=== PATIENT | male | born 1945 | race Caucasian/White ===

== ENCOUNTER 2018-05-22 16:42 | Inpatient (IN) ==
[~2018-05-22 16:42] MED LIST: LIDOCAINE 1% 20 ML VIAL ONE
[2018-05-22] MEDS ORDERED: MIDAZOLAM 2 MG/2 ML VIAL ONE (16:49)
[2018-05-22] MEDS ORDERED: HYDROmorphone 2 MG/1 ML VIAL ONE (16:49)
[2018-05-22] MEDS ORDERED: LIDOCAINE 1% 20 ML VIAL ONE (16:49)
[2018-05-22] MEDS ORDERED: HEPARIN 5,000 UNIT/1 ML VIAL ONE (17:07)
[2018-05-22 17:40] LABS: Basophils % 0.3 % (0.0-0.8); Eosinophils # 0.1 10*3/uL (0.0-0.87); Eosinophils % 0.7 % (0.00-10.9); Hematocrit 28.8 VOL% (42.0-52.0); Hemoglobin 8.9 GM/DL (14.0-18.0); Immature Granulocytes % 0.6 %; Immature Granulocytes Absolute 0.07 #; Lymphocytes # 0.9 10*3/uL (1.4-4.0); Mean Corpuscular HGB Conc 30.9 GM/DL (32-36); Mean Corpuscular Hemoglobin 30 PG (27-34); Mean Corpuscular Volume 95.4 FL (87-102); Mean Platelet Volume 9.8 FL (9.6-12.0); Monocytes # 1.1 10*3/uL (0.11-0.8); Monocytes % 9.2 % (1.7-12.7); Neutrophils # 9.3 10*3/uL (1.4-7.4); Neutrophils % 81.2 % (38.7-73.9); Platelet Count 166 T/CUMM (130-400); Red Blood Count 3.02 MC/CUMM (3.8-5.5); Red Cell Distribution Width 14.8 % (9.3-17.3); White Blood Count 11.5 T/CUMM (4-12)
[2018-05-22] MEDS ORDERED: NITROGLYCERIN SL 0.4 MG TABLET SL PRN (17:43)
[2018-05-22] MEDS ORDERED: ONDANSETRON 4 MG/2 ML VIAL IV PRN (17:43)
[2018-05-22 17:52] LABS: INR 1.2; PT Patient Result 13.4 SECS
[2018-05-22 17:57] LABS: Alanine Aminotransferase 12 U/L (16-61); Albumin 2.6 G/DL (3.4-5.0); Alkaline Phosphatase 111 U/L (45-117); Aspartate Amino Transferase 14 U/L (0-37); Bilirubin,Total < 0.39 MG/DL (0.2-1.0); Blood Urea Nitrogen 13 MG/DL (7-18); Calcium 7.4 MG/DL (8.5-10.1); Cholesterol 85 MG/DL (50-200); Glucose 202 MG/DL (74-106); HDL Cholesterol 32 MG/DL (40-60); Osmolality,Calculated 273.2 MOS/KG (273-304); Potassium 3.2 MMOL/L (3.5-5.1); Risk Ratio 2.66; Sodium 134 MMOL/L (136-145); Total Protein 5.8 G/DL (6.4-8.3); Triglycerides 136 MG/DL (2-150); VLDL CHOLESTEROL 27.2 MG/DL
[2018-05-22 18:04] LABS: Troponin I 0.087 NG/ML (0.00-0.045)
[2018-05-22 18:06] LABS: Partial Thromboplastin Time 147.3 SECS (0-40)
[2018-05-22] MEDS ORDERED: POTASSIUM CHLORIDE RIDER 10 MEQ in PREMIX 1 EACH IV PRN (18:13)
[2018-05-22] MEDS ORDERED: SODIUM CHLORIDE 0.9% 1,000 ML IV SCH (18:30)
[2018-05-22 19:41] LABS: ABG Base Excess -3.5 MMOL/L (-2.5-2.5); ABG HCO3 21.5 MMOL/L (20-26); ABG Oxygen Saturation 97.7 % (95-100); ABG PH 7.339 (7.35-7.45); ABG TCO2 20.2 MMOL/L (23-27)
[2018-05-22] MEDS ORDERED: cefTRIAXone 1,000 MG in SYRINGE 1 EACH IV SCH (20:00)
[2018-05-22] MEDS: HYDROmorphone 2 MG/1 ML VIAL IV PRN (20:35)
[2018-05-22] MEDS: ROSUVASTATIN 20 MG TABLET PO SCH (21:20)
[2018-05-22] MEDS: INSULIN REGULAR 100 UNIT/ML SUBCUT SCH (21:20)
[2018-05-22] MEDS: MEROPENEM 1,000 MG in SODIUM CHLORIDE 0.9% 100 ML IV SCH (21:40)
[2018-05-22] MEDS: LEVOFLOXACIN INJ 750 MG in PREMIX 1 EACH IV SCH (22:00)
[2018-05-23] MEDS: VANCOMYCIN INJ 1,000 MG in SODIUM CHLORIDE 0.9% 250 ML IV SCH ×2 (00:40→12:02)
[2018-05-23] MEDS ORDERED: LORazepam 1 MG TABLET PO ONE (00:45)
[2018-05-23] MEDS: ACETAMINOPHEN 500 MG TABLET PO PRN ×2 (01:11→17:31)
[2018-05-23 04:46] LABS: Basophils % 0.1 % (0.0-0.8); Eosinophils % 0.1 % (0.00-10.9); Hematocrit 31.7 VOL% (42.0-52.0); Hemoglobin 9.6 GM/DL (14.0-18.0); Immature Granulocytes % 0.6 %; Immature Granulocytes Absolute 0.07 #; Lymphocytes # 0.7 10*3/uL (1.4-4.0); Lymphocytes % 6.1 % (21.2-54.2); Mean Corpuscular HGB Conc 30.3 GM/DL (32-36); Mean Corpuscular Hemoglobin 29 PG (27-34); Mean Corpuscular Volume 96.4 FL (87-102); Mean Platelet Volume 10.3 FL (9.6-12.0); Monocytes # 0.3 10*3/uL (0.11-0.8); Monocytes % 2.2 % (1.7-12.7); Neutrophils % 90.9 % (38.7-73.9); Platelet Count 171 T/CUMM (130-400); Red Blood Count 3.29 MC/CUMM (3.8-5.5); Red Cell Distribution Width 15.1 % (9.3-17.3); White Blood Count 12.1 T/CUMM (4-12)
[2018-05-23 05:16] LABS: Band Neutrophils 2 % (0-10); Lymphocytes 11 % (20-55); Platelet Estimate Normal; Segmented Neutrophils 83 % (50-85); Total Cells Counted 100
[2018-05-23 05:18] LABS: Albumin 2.8 G/DL (3.4-5.0); Bilirubin,Total 0.5 MG/DL (0.2-1.0); Calcium 8.1 MG/DL (8.5-10.1); Potassium 3.6 MMOL/L (3.5-5.1); Total Protein 6.5 G/DL (6.4-8.3)
[2018-05-23] MEDS: MEROPENEM 1,000 MG in SODIUM CHLORIDE 0.9% 100 ML IV SCH ×3 (05:45→23:18)
[2018-05-23] MEDS ORDERED: SODIUM CHLORIDE 0.9% 500 ML IV ONE (05:57)
[2018-05-23] MEDS ORDERED: NOREPINEPHRINE 4 MG/4 ML VIAL IV ONE (06:06)
[2018-05-23] MEDS: NOREPINEPHRINE 8 MG in SODIUM CHLORIDE 0.9% 242 ML IV PRN ×2 (06:12→16:29)
[2018-05-23] MEDS: ASPIRIN EC 81 MG TABLET PO SCH (09:06)
[2018-05-23] MEDS: INSULIN REGULAR 100 UNIT/ML SUBCUT SCH ×4 (09:06→21:35)
[2018-05-23] MEDS: SODIUM CHLORIDE 0.45% 1,000 ML IV SCH ×2 (09:43→23:20)
[2018-05-23] MEDS ORDERED: MAGNESIUM SULF RIDER 4 GM in PREMIX 1 EACH IV PRN (10:37)
[2018-05-23] MEDS: MAGNESIUM SULF RIDER 2 GM in PREMIX 1 EACH IV PRN ×2 (12:02→13:51)
[2018-05-23] MEDS: HYDROmorphone 2 MG/1 ML VIAL IV PRN (12:03)
[2018-05-23] MEDS ORDERED: LINEZOLID INJ 600 MG in PREMIX 1 EACH IV SCH (17:00)
[2018-05-23] MEDS: methylPREDNISolone SOD SUC 40 MG/1 ML VIAL IV SCH (17:25)
[2018-05-23] MEDS: LINEZOLID INJ 600 MG in PREMIX 1 EACH IV SCH (17:29)
[2018-05-23] MEDS: ALBUTEROL/IPRATROPIUM 3 ML NEB RESP TX SCH (19:46)
[2018-05-23] MEDS: ROSUVASTATIN 20 MG TABLET PO SCH (21:35)
[2018-05-23] MEDS: LEVOFLOXACIN INJ 750 MG in PREMIX 1 EACH IV SCH (21:36)
[2018-05-24] MEDS: ALBUTEROL/IPRATROPIUM 3 ML NEB RESP TX SCH ×4 (00:12→19:20)
[2018-05-24] MEDS: methylPREDNISolone SOD SUC 40 MG/1 ML VIAL IV SCH ×3 (02:25→18:53)
[2018-05-24 04:11] LABS: Basophils % 0.2 % (0.0-0.8); Hematocrit 30.8 VOL% (42.0-52.0); Hemoglobin 9.5 GM/DL (14.0-18.0); Immature Granulocytes % 1.3 %; Immature Granulocytes Absolute 0.21 #; Lymphocytes # 0.5 10*3/uL (1.4-4.0); Lymphocytes % 2.9 % (21.2-54.2); Mean Corpuscular HGB Conc 30.8 GM/DL (32-36); Mean Corpuscular Hemoglobin 29 PG (27-34); Mean Corpuscular Volume 94.5 FL (87-102); Mean Platelet Volume 9.8 FL (9.6-12.0); Monocytes # 0.6 10*3/uL (0.11-0.8); Monocytes % 3.6 % (1.7-12.7); Neutrophils # 14.7 10*3/uL (1.4-7.4); Platelet Count 165 T/CUMM (130-400); Red Blood Count 3.26 MC/CUMM (3.8-5.5); Red Cell Distribution Width 14.8 % (9.3-17.3)
[2018-05-24 04:35] LABS: Calcium 8.1 MG/DL (8.5-10.1); Osmolality,Calculated 285.1 MOS/KG (273-304); Potassium 4.1 MMOL/L (3.5-5.1)
[2018-05-24 04:45] LABS: Band Neutrophils 3 % (0-10); Lymphocytes 3 % (20-55); Platelet Estimate Normal; Segmented Neutrophils 91 % (50-85); Total Cells Counted 100
[2018-05-24 04:46] LABS: Anisocytosis Slight; Microcytosis Slight
[2018-05-24] MEDS: LINEZOLID INJ 600 MG in PREMIX 1 EACH IV SCH ×2 (06:04→18:53)
[2018-05-24] MEDS: MEROPENEM 1,000 MG in SODIUM CHLORIDE 0.9% 100 ML IV SCH ×3 (06:04→21:59)
[2018-05-24] MEDS: NOREPINEPHRINE 8 MG in SODIUM CHLORIDE 0.9% 242 ML IV PRN (06:07)
[2018-05-24] MEDS ORDERED: GLUCAGON 1 MG VIAL IM PRN (07:16)
[2018-05-24] MEDS ORDERED: DEXTROSE 50% 25 GM/50 ML SYRINGE IV PRN (07:16)
[2018-05-24] MEDS ORDERED: VANCOMYCIN INJ 1,000 MG in SODIUM CHLORIDE 0.9% 250 ML IV SCH (08:00)
[2018-05-24] MEDS: SODIUM CHLORIDE 0.45% 1,000 ML IV SCH ×3 (09:05→21:57)
[2018-05-24] MEDS: INSULIN REGULAR 100 UNIT/ML SUBCUT SCH ×4 (09:06→21:59)
[2018-05-24] MEDS: HYDROmorphone 2 MG/1 ML VIAL IV PRN ×2 (09:38→16:46)
[2018-05-24] MEDS: ASPIRIN EC 81 MG TABLET PO SCH (12:07)
[2018-05-24 17:25] LABS: Apearance,Urine CLEAR (Clear); Bacteria,Urine Occasional /HPF (Few); Bilirubin,Urine Negative (Negative); Blood, Urine Moderate mg/dL (Negative); Glucose,Urine (UA) >=500 mg/dL (Negative); Ketones,Urine Negative (Negative); Mucus,Urine Occasional /LPF (Occasional); Nitrite,Urine Negative (Negative); Protein,Urine 100 MG/DL; RBC,Urine 19 /HPF (0-4); Sperm,Urine Occasional /HPF (Negative); Squamous Epithelial Cell,Urine Occasional /HPF (0-10); Urine Color Yellow (Yellow); Urine Specific Gravity 1.014 (1.001-1.035); Urine Urobilinogen < 2.0 EU/DL (0.2-1.0); WBC,Urine 4 /HPF (0-6)
[2018-05-24] MEDS: MORPHINE 4 MG/1 ML VIAL IV PRN (21:30)
[2018-05-24] MEDS: ROSUVASTATIN 20 MG TABLET PO SCH (21:59)
[2018-05-24] MEDS: LEVOFLOXACIN INJ 750 MG in PREMIX 1 EACH IV SCH (22:00)
[2018-05-25] MEDS: ALBUTEROL/IPRATROPIUM 3 ML NEB RESP TX SCH ×4 (00:10→20:11)
[2018-05-25] MEDS: SODIUM CHLORIDE 0.45% 1,000 ML IV SCH ×2 (01:13→09:06)
[2018-05-25] MEDS: methylPREDNISolone SOD SUC 40 MG/1 ML VIAL IV SCH ×3 (02:39→18:29)
[2018-05-25] MEDS: MORPHINE 4 MG/1 ML VIAL IV PRN ×2 (02:42→14:52)
[2018-05-25 04:04] LABS: Basophils % 0.1 % (0.0-0.8); Hematocrit 30.2 VOL% (42.0-52.0); Hemoglobin 9.3 GM/DL (14.0-18.0); Immature Granulocytes % 0.7 %; Immature Granulocytes Absolute 0.06 #; Lymphocytes # 0.6 10*3/uL (1.4-4.0); Lymphocytes % 6.9 % (21.2-54.2); Mean Corpuscular HGB Conc 30.8 GM/DL (32-36); Mean Corpuscular Hemoglobin 29 PG (27-34); Mean Corpuscular Volume 94.7 FL (87-102); Mean Platelet Volume 10.4 FL (9.6-12.0); Monocytes # 0.3 10*3/uL (0.11-0.8); Monocytes % 3.2 % (1.7-12.7); Neutrophils # 7.6 10*3/uL (1.4-7.4); Neutrophils % 89.1 % (38.7-73.9); Platelet Count 183 T/CUMM (130-400); Red Blood Count 3.19 MC/CUMM (3.8-5.5); Red Cell Distribution Width 14.7 % (9.3-17.3); White Blood Count 8.5 T/CUMM (4-12)
[2018-05-25 04:32] LABS: Calcium 8.4 MG/DL (8.5-10.1); Potassium 4.1 MMOL/L (3.5-5.1)
[2018-05-25] MEDS: HYDROmorphone 2 MG/1 ML VIAL IV PRN ×4 (05:19→23:07)
[2018-05-25] MEDS: MEROPENEM 1,000 MG in SODIUM CHLORIDE 0.9% 100 ML IV SCH ×3 (05:47→20:28)
[2018-05-25] MEDS: LINEZOLID INJ 600 MG in PREMIX 1 EACH IV SCH ×2 (05:47→18:29)
[2018-05-25] MEDS: INSULIN REGULAR 100 UNIT/ML SUBCUT SCH ×4 (07:53→20:28)
[2018-05-25] MEDS: ASPIRIN EC 81 MG TABLET PO SCH (08:15)
[2018-05-25] MEDS: SODIUM CHLORIDE 0.9% 1,000 ML IV SCH ×2 (10:32→23:19)
[2018-05-25] MEDS: INSULIN GLARGINE 100 UNIT/ML SUBCUT SCH (14:02)
[2018-05-25] MEDS ORDERED: PROTEASE PO SCH (18:10)
[2018-05-25] MEDS ORDERED: LIPASE PO SCH (18:10)
[2018-05-25] MEDS ORDERED: AMYLASE PO SCH (18:10)
[2018-05-25] MEDS: metFORMIN 500 MG TABLET PO SCH (18:30)
[2018-05-25] MEDS: ROSUVASTATIN 20 MG TABLET PO SCH (20:28)
[2018-05-25] MEDS: LEVOFLOXACIN INJ 750 MG in PREMIX 1 EACH IV SCH (21:03)
[2018-05-26] MEDS: ALBUTEROL/IPRATROPIUM 3 ML NEB RESP TX SCH ×4 (00:55→19:13)
[2018-05-26] MEDS: SODIUM CHLORIDE 0.9% 1,000 ML IV SCH ×2 (04:14→22:00)
[2018-05-26] MEDS: MEROPENEM 1,000 MG in SODIUM CHLORIDE 0.9% 100 ML IV SCH ×3 (04:14→21:11)
[2018-05-26] MEDS: HYDROmorphone 2 MG/1 ML VIAL IV PRN ×2 (04:15→20:22)
[2018-05-26 04:26] LABS: Basophils % 0.1 % (0.0-0.8); Hematocrit 29.5 VOL% (42.0-52.0); Immature Granulocytes % 0.7 %; Immature Granulocytes Absolute 0.05 #; Lymphocytes # 0.8 10*3/uL (1.4-4.0); Lymphocytes % 10.8 % (21.2-54.2); Mean Corpuscular HGB Conc 30.5 GM/DL (32-36); Mean Corpuscular Hemoglobin 29 PG (27-34); Mean Corpuscular Volume 96.1 FL (87-102); Mean Platelet Volume 10.2 FL (9.6-12.0); Monocytes # 0.4 10*3/uL (0.11-0.8); Monocytes % 5.1 % (1.7-12.7); Neutrophils # 6.1 10*3/uL (1.4-7.4); Neutrophils % 83.3 % (38.7-73.9); Platelet Count 181 T/CUMM (130-400); Red Blood Count 3.07 MC/CUMM (3.8-5.5); Red Cell Distribution Width 14.8 % (9.3-17.3); White Blood Count 7.3 T/CUMM (4-12)
[2018-05-26 04:30] LABS: Calcium 8.4 MG/DL (8.5-10.1); Osmolality,Calculated 286.7 MOS/KG (273-304); Potassium 3.9 MMOL/L (3.5-5.1)
[2018-05-26] MEDS: LINEZOLID INJ 600 MG in PREMIX 1 EACH IV SCH ×2 (05:52→18:42)
[2018-05-26] MEDS: metFORMIN 500 MG TABLET PO SCH ×2 (10:32→19:17)
[2018-05-26] MEDS: INSULIN GLARGINE 100 UNIT/ML SUBCUT SCH (10:33)
[2018-05-26] MEDS: ASPIRIN EC 81 MG TABLET PO SCH (10:33)
[2018-05-26] MEDS: INSULIN REGULAR 100 UNIT/ML SUBCUT SCH ×4 (10:33→22:41)
[2018-05-26] MEDS: methylPREDNISolone SOD SUC 40 MG/1 ML VIAL IV SCH ×2 (10:34→21:12)
[2018-05-26] MEDS: MORPHINE 4 MG/1 ML VIAL IV PRN (18:50)
[2018-05-26] MEDS: ROSUVASTATIN 20 MG TABLET PO SCH (21:12)
[2018-05-26] MEDS: LEVOFLOXACIN INJ 750 MG in PREMIX 1 EACH IV SCH (21:12)
[2018-05-27] MEDS: ALBUTEROL/IPRATROPIUM 3 ML NEB RESP TX SCH ×4 (00:18→19:15)
[2018-05-27] MEDS: SODIUM CHLORIDE 0.9% 1,000 ML IV SCH ×3 (00:48→17:18)
[2018-05-27] MEDS: MEROPENEM 1,000 MG in SODIUM CHLORIDE 0.9% 100 ML IV SCH ×3 (05:16→20:11)
[2018-05-27] MEDS: LINEZOLID INJ 600 MG in PREMIX 1 EACH IV SCH ×2 (05:51→17:16)
[2018-05-27 09:05] LABS: Calcium 8.6 MG/DL (8.5-10.1); Osmolality,Calculated 286.4 MOS/KG (273-304); Potassium 4.5 MMOL/L (3.5-5.1)
[2018-05-27 09:11] LABS: Basophils % 0.2 % (0.0-0.8); Eosinophils % 0.5 % (0.00-10.9); Hematocrit 35.1 VOL% (42.0-52.0); Immature Granulocytes % 1.3 %; Immature Granulocytes Absolute 0.08 #; Lymphocytes # 1.4 10*3/uL (1.4-4.0); Lymphocytes % 22.9 % (21.2-54.2); Mean Corpuscular HGB Conc 29.3 GM/DL (32-36); Mean Corpuscular Hemoglobin 29 PG (27-34); Mean Corpuscular Volume 99.2 FL (87-102); Mean Platelet Volume 9.6 FL (9.6-12.0); Monocytes # 0.5 10*3/uL (0.11-0.8); Monocytes % 7.9 % (1.7-12.7); Neutrophils # 4.2 10*3/uL (1.4-7.4); Neutrophils % 67.2 % (38.7-73.9); Platelet Count 182 T/CUMM (130-400); Red Blood Count 3.54 MC/CUMM (3.8-5.5); Red Cell Distribution Width 14.6 % (9.3-17.3); White Blood Count 6.3 T/CUMM (4-12)
[2018-05-27 09:12] LABS: Hemoglobin 10.3 GM/DL (14.0-18.0)
[2018-05-27] MEDS: ASPIRIN EC 81 MG TABLET PO SCH (10:05)
[2018-05-27] MEDS: metFORMIN 500 MG TABLET PO SCH ×2 (10:05→17:03)
[2018-05-27] MEDS: methylPREDNISolone SOD SUC 40 MG/1 ML VIAL IV SCH ×2 (10:05→20:13)
[2018-05-27] MEDS: INSULIN REGULAR 100 UNIT/ML SUBCUT SCH ×4 (10:06→23:05)
[2018-05-27] MEDS: INSULIN GLARGINE 100 UNIT/ML SUBCUT SCH (10:07)
[2018-05-27] MEDS ORDERED: GLUCAGON 1 MG VIAL IM PRN (10:08)
[2018-05-27] MEDS ORDERED: DEXTROSE 50% 25 GM/50 ML VIAL IV PRN (10:08)
[2018-05-27] MEDS: CARVEDILOL 3.125 MG TABLET PO SCH ×2 (10:12→20:11)
[2018-05-27] MEDS: CHLORHEXIDINE 4% SOLN 118 ML BOTTLE TOP SCH ×2 (15:51→21:00)
[2018-05-27] MEDS: HYDROmorphone 2 MG/1 ML VIAL IV PRN ×2 (15:56→20:11)
[2018-05-27] MEDS: ROSUVASTATIN 20 MG TABLET PO SCH (20:11)
[2018-05-27] MEDS: MONTELUKAST 10 MG TABLET PO SCH (20:11)
[2018-05-27] MEDS: CHLORHEXIDINE 0.12% ORAL RINSE 60 ML BOTTLE SWISH/SPIT SCH (20:13)
[2018-05-27] MEDS: LEVOFLOXACIN INJ 750 MG in PREMIX 1 EACH IV SCH (23:15)
[2018-05-28] MEDS: ALBUTEROL/IPRATROPIUM 3 ML NEB RESP TX SCH ×4 (00:10→20:41)
[2018-05-28] MEDS: MORPHINE 4 MG/1 ML VIAL IV PRN (01:40)
[2018-05-28 03:37] LABS: Basophils % 0.2 % (0.0-0.8); Hematocrit 31.9 VOL% (42.0-52.0); Hemoglobin 9.8 GM/DL (14.0-18.0); Immature Granulocytes % 1.5 %; Immature Granulocytes Absolute 0.09 #; Lymphocytes % 15.8 % (21.2-54.2); Mean Corpuscular HGB Conc 30.7 GM/DL (32-36); Mean Corpuscular Hemoglobin 29 PG (27-34); Mean Corpuscular Volume 95.2 FL (87-102); Mean Platelet Volume 9.9 FL (9.6-12.0); Monocytes # 0.4 10*3/uL (0.11-0.8); Monocytes % 6.3 % (1.7-12.7); Neutrophils # 4.6 10*3/uL (1.4-7.4); Neutrophils % 76.2 % (38.7-73.9); Platelet Count 169 T/CUMM (130-400); Red Blood Count 3.35 MC/CUMM (3.8-5.5); Red Cell Distribution Width 14.5 % (9.3-17.3); White Blood Count 6.1 T/CUMM (4-12)
[2018-05-28 03:57] LABS: Calcium 8.1 MG/DL (8.5-10.1); Osmolality,Calculated 285.4 MOS/KG (273-304); Potassium 3.9 MMOL/L (3.5-5.1)
[2018-05-28] MEDS: MEROPENEM 1,000 MG in SODIUM CHLORIDE 0.9% 100 ML IV SCH ×2 (05:53→15:50)
[2018-05-28] MEDS: LINEZOLID INJ 600 MG in PREMIX 1 EACH IV SCH (06:41)
[2018-05-28] MEDS ORDERED: INSULIN GLARGINE 100 UNIT/ML SUBCUT SCH (09:00)
[2018-05-28] MEDS: HYDROmorphone 2 MG/1 ML VIAL IV PRN ×2 (10:02→15:49)
[2018-05-28] MEDS: methylPREDNISolone SOD SUC 40 MG/1 ML VIAL IV SCH (10:06)
[2018-05-28] MEDS: INSULIN REGULAR 100 UNIT/ML SUBCUT SCH ×2 (11:17→15:38)
[2018-05-28] MEDS: CHLORHEXIDINE 0.12% ORAL RINSE 60 ML BOTTLE SWISH/SPIT SCH (11:17)
[2018-05-28] MEDS: CHLORHEXIDINE 4% SOLN 118 ML BOTTLE TOP SCH (11:17)
[2018-05-28] MEDS ORDERED: VANCOMYCIN 1,000 MG VIAL ONE (12:53)
[2018-05-28] MEDS ORDERED: PHENYLEPHRINE DRIP 20 MG/250 ML PREMIX IV ONE (13:11)
[2018-05-28] MEDS ORDERED: HEPARIN/NACL 0.9% 2 UNITS/ML 500 ML IV ONE (13:50)
[2018-05-28] MEDS ORDERED: PROPOFOL 200 MG/20 ML VIAL IV ONE (14:36)
[2018-05-28] MEDS ORDERED: SEVOFLURANE 1 UNIT/15 MINUTE INH ONE ×2 (14:36→21:00)
[2018-05-28] MEDS ORDERED: ETOMIDATE 40 MG/20 ML VIAL IV ONE (14:37)
[2018-05-28] MEDS ORDERED: VECURONIUM 10 MG VIAL IV ONE ×4 (14:37→21:01)
[2018-05-28] MEDS ORDERED: fentaNYL 100 MCG/2 ML VIAL ONE (14:37)
[2018-05-28] MEDS ORDERED: ROCURONIUM 100 MG/10 ML VIAL IV ONE (14:37)
[2018-05-28] MEDS ORDERED: MIDAZOLAM 2 MG/2 ML VIAL ONE (14:38)
[2018-05-28] MEDS ORDERED: SODIUM CHLORIDE 0.9% 1,000 ML IV ONE ×2 (14:38→21:01)
[2018-05-28] MEDS ORDERED: PROPOFOL 1,000 MG/100 ML BOTTLE IV SCH (15:00)
[2018-05-28] MEDS: SODIUM CHLORIDE 0.9% 1,000 ML IV SCH ×4 (15:20→17:57)
[2018-05-28 15:31] LABS: ABG Base Excess 1.5 MMOL/L (-2.5-2.5); ABG HCO3 25.8 MMOL/L (20-26); ABG Oxygen Saturation 99.3 % (95-100); ABG PCO2 47.2 MM HG (35-48); ABG PH 7.371 (7.35-7.45); ABG TCO2 24.7 MMOL/L (23-27)
[2018-05-28] MEDS: metFORMIN 500 MG TABLET PO SCH ×2 (15:37→16:03)
[2018-05-28] MEDS: CARVEDILOL 3.125 MG TABLET PO SCH (15:51)
[2018-05-28] MEDS: MONTELUKAST 10 MG TABLET PO SCH (15:52)
[2018-05-28] MEDS: ASPIRIN EC 81 MG TABLET PO SCH (15:53)
[2018-05-28] MEDS ORDERED: ALBUMIN 5% 25 GM in PREMIX 1 EACH IV ONE (16:14)
[2018-05-28] MEDS ORDERED: ALBUMIN 5% 12.5 GM/250 ML VIAL IV ONE ×2 (16:20→17:29)
[2018-05-28] MEDS ORDERED: NOREPINEPHRINE 4 MG/4 ML VIAL IV ONE (16:44)
[2018-05-28] MEDS ORDERED: KETAMINE 500 MG/10 ML VIAL ONE (16:57)
[2018-05-28] MEDS ORDERED: MIDAZOLAM 10 MG/2 ML VIAL ONE ×2 (16:57→21:01)
[2018-05-28 16:58] LABS: Basophils % 0.1 % (0.0-0.8); Eosinophils % 0.1 % (0.00-10.9); Hematocrit 26.3 VOL% (42.0-52.0); Hemoglobin 8.1 GM/DL (14.0-18.0); Immature Granulocytes % 1.3 %; Lymphocytes # 1.3 10*3/uL (1.4-4.0); Lymphocytes % 16.8 % (21.2-54.2); Mean Corpuscular HGB Conc 30.8 GM/DL (32-36); Mean Corpuscular Hemoglobin 29 PG (27-34); Mean Corpuscular Volume 94.3 FL (87-102); Mean Platelet Volume 9.7 FL (9.6-12.0); Monocytes # 0.5 10*3/uL (0.11-0.8); Monocytes % 6.7 % (1.7-12.7); Platelet Count 184 T/CUMM (130-400); Red Blood Count 2.79 MC/CUMM (3.8-5.5); Red Cell Distribution Width 14.6 % (9.3-17.3); White Blood Count 7.9 T/CUMM (4-12)
[2018-05-28] MEDS ORDERED: NOREPINEPHRINE 4 MG in SODIUM CHLORIDE 0.9% 246 ML IV PRN (17:27)
[2018-05-28] MEDS ORDERED: PHENYLEPHRINE DRIP 40 MG/250 ML PREMIX IV ONE (17:28)
[2018-05-28] MEDS ORDERED: NITROPRUSSIDE 50 MG/2 ML VIAL ONE (17:28)
[2018-05-28] MEDS ORDERED: HETASTARCH 6% 500 ML IV ONE (17:28)
[2018-05-28] MEDS ORDERED: SODIUM BICARBONATE 50 MEQ/50 ML VIAL IV ONE ×2 (17:28→20:56)
[2018-05-28] MEDS ORDERED: CALCIUM CHLORIDE 1,000 MG/10 ML SYRINGE IV ONE (17:29)
[2018-05-28] MEDS ORDERED: POTASSIUM CHLORIDE RIDER 100 ML IV ONE (17:29)
[2018-05-28 17:51] LABS: ABG HCO3 23.6 MMOL/L (20-26); ABG Oxygen Saturation 99.6 % (95-100); ABG PCO2 46.1 MM HG (35-48); ABG TCO2 23.2 MMOL/L (23-27); Glucose Heart Surgery 219 MG/DL (74-106); Hematocrit Heart Surgery 25.9 PERCENT (42-52); Hemoglobin Heart Surgery 8.3 G/DL (14.0-18.0); Ionized Calcium Arterial 1.08 MMOL/L (1.21-1.46); PCO2 Patient Temp Arterial 46.1 MMHG; Patient Temperature 37 CELCIUS; Potassium Heart/CVR 3.5 MMOL/L (3.5-5.1); Sodium Heart/CVR 137 MMOL/L (135-145)
[2018-05-28] MEDS ORDERED: INSULIN REGULAR 100 UNIT/ML SUBCUT SCH (18:00)
[2018-05-28] MEDS ORDERED: ATROPINE 1 MG/10 ML SYRINGE ONE (18:34)
[2018-05-28 19:29] LABS: Hematocrit Heart Surgery 18.5 PERCENT (42-52); PCO2 Patient Temp Venous 41.6 MM HG; PH Patient Temp Venous 7.464; PO2 Patient Temp Venous 23.3 MM HG; Potassium Heart/CVR 4.4 MMOL/L (3.5-5.1); VBG Base Excess 5.9 MEQ/L (0-4); VBG HCO3 29.4 MEQ/L (24-28); VBG Oxygen Saturation 60.7 %; VBG PCO2 45.8 MMHG (41-51); VBG PH 7.434; VBG PO2 26.9 MMHG (17-40)
[2018-05-28 19:37] LABS: Hemoglobin Heart Surgery 5.9 G/DL (14.0-18.0)
[2018-05-28 20:02] LABS: Hematocrit Heart Surgery 26.1 PERCENT (42-52); Hemoglobin Heart Surgery 8.4 G/DL (14.0-18.0); PCO2 Patient Temp Venous 35.6 MM HG; PH Patient Temp Venous 7.424; Potassium Heart/CVR 4.6 MMOL/L (3.5-5.1); VBG Base Excess -0.7 MEQ/L (0-4); VBG HCO3 23.2 MEQ/L (24-28); VBG Oxygen Saturation 56.4 %; VBG PCO2 35.6 MMHG (41-51); VBG PH 7.424
[2018-05-28] MEDS ORDERED: MANNITOL 100 GM/500 ML BAG IV ONE (20:55)
[2018-05-28] MEDS ORDERED: HEPARIN 10,000 UNIT/10 ML VIAL ONE (20:56)
[2018-05-28] MEDS ORDERED: methylPREDNISolone SOD SUC 1,000 MG/8 ML VIAL ONE (20:56)
[2018-05-28] MEDS ORDERED: FUROSEMIDE 20 MG/2 ML VIAL ONE (20:56)
[2018-05-28] MEDS ORDERED: ALBUMIN 25% 25 GM/100 ML VIAL IV ONE (20:56)
[2018-05-28] MEDS ORDERED: PHENYLEPHRINE 10 MG/1 ML VIAL IV ONE (20:57)
[2018-05-28] MEDS ORDERED: CALCIUM CHLORIDE 1,000 MG/10 ML VIAL IV ONE (21:00)
[2018-05-28] MEDS ORDERED: LACTATED RINGERS 1,000 ML IV ONE (21:01)
[2018-05-28] MEDS ORDERED: AMINOCAPROIC ACID 5,000 MG/20 ML VIAL ONE (21:01)
[2018-05-28] MEDS ORDERED: SODIUM CHLORIDE 0.9% 100 ML IV ONE (21:01)
[2018-05-29 08:46] VITALS: BP 77/41
== END 2018-05-28 20:29 | disposition expired | DRG 856 ==
LOC: N.CL 16:42 → N.CC 17:36 → N.CVR 05-28 18:13
PROVIDERS: ADMIT Internal Medicine Cardiovascular Disease; ATTEND Internal Medicine Cardiovascular Disease